=== PATIENT | female | born 1945 | race Caucasian/White ===

== ENCOUNTER 2016-06-22 09:26 | Emergency (ER) | payer MEDICARE, BC ==
[2016-06-22 09:41] VITALS: BP 148/76
[2016-06-22] MEDS ORDERED: Naproxen TAB* 375 MG PO ONE (10:34)
[2016-06-22] MEDS ORDERED: Naproxen TAB* 250 MG PO ONE (10:37)
--- NOTE | 2016-06-22 10:41 | UC ---
Back Pain HPI - HPI Summary HPI Summary: Nurse's note: USING A CANE ONLY BECAUSE OF INJURY; NOT ROUTINELY. DISWASHER DOOR WAS OPENA AND SHE WALKED INTO IT AND TRIPPED AND FELL. HIT THE RIGHT HAND SIDE OF HER RIBS/SHOULDER BLADE. FELT LIKE A KNIFE GOING INTO HER. PAINF ROM LOWER PART OF SHOULDER BLADE TO HER WAIST ON THE RIGHT SIDE. HURTS TO GET UP AND DOWN FROM A CHAIR AND TO BEND SIDEWAYS. FELT LIKE SHE "LOST HER AIR" WHEN IT HAPPENED. NO SOB NOW. HPI: A 70 y/o female came in to [facility] presenting w/ a sudden onset of constant pain due to injury acquired yesterday 06/21/16 around 6:00pm. Patient states she was clearing the table carrying dishes when she tripped over the open cyanide case hardener door landing on her right side. She states she felt sudden pain when incident happened and described it to be "sharp stabbing pain like a knife" went into her back. Pt reports it took the wind out of her. Since the incident she has been experiencing a constant dull pain with sharp pain just under her right shoulder blade and radiating down her right flank upon certain movements. She states the pain is worse when changing positions, twisting and taking deep breaths. Denies any bruising or swelling. She states she also hit her right elbow however it is only sore. She is able to move it and has not noticed any bruising or deformity. Denies hitting her head, LOC, neck pain, loss of bladder/ bowel control, saddle anesthesia, muscle spasms and numbness/tingling. She is able to bear weight and walk however certain movements due cause her sharp shooting pain. She has not taken anything for the pain. Holding her hand behind her back and applying pressure gives her some relief. No pertinent PMHx. Patient does pilates and states she is very strong and knows how to breathe through pain. Denies difficulty breathing, SOB, chest pain and abdominal pain. - History of Current Complaint Chief Complaint: UC Stated Complaint: BACK INJURY Time Seen by Provider: 06/22/16 10:20 Hx Obtained From: Patient ?: No Onset/Duration: Sudden Onset Timing: Constant Severity Initially: Moderate Severity Currently: Moderate Pain Intensity: 5 Pain Scale Used: 0-10 Numeric Back Pain: Is Discrete @ - right side of ribs under shoulder blade, Radiates To - some radiation down right flank with movement Character: Sharp, Dull, Aching Aggravating: Movement, Lifting, Bending, Walking Alleviating: Rest, Position Associated Signs And Symptoms: Negative: Swelling, Redness, Bruising, Weakness, Numbness, Tingling, Abdominal Pain, Bladder Incontinence, Bowel Incontinence, Pain with Weight Bearing - Allergies/Home Medications Allergies/Adverse Reactions: Allergies Allergy/AdvReac Type Severity Reaction Status Date / Time Doxycycline Allergy Severe Anaphylatic Verified 02/07/16 15:44 Shock Iodine Allergy Severe Rash Verified 02/07/16 15:46 Monosodium Glutamate Allergy Severe Anaphylatic Verified 02/07/16 15:46 Shock FAMCYCLOVIR Allergy Severe Anaphylatic Uncoded 02/07/16 15:46 Shock PMH/Surg Hx/FS Hx/Imm Hx Previously Healthy: Yes Endocrine History Of: Reports: Thyroid Disease - HANSA Denies: Diabetes Cardiovascular History Of: Denies: Cardiac Disorders, Hypertension Respiratory History Of: Denies: COPD, Asthma GI/ History Of: Denies: Ulcer - Surgical History Surgical History: Yes Surgery Procedure, Year, and Place: APPENDECTOMY, TONSILLECTOMY - Family History Known Family History: Positive: Other - thyroid problems - Social History Alcohol Use: Occasionally Substance Use Type: None Smoking Status (MU): Never Smoked Tobacco Review of Systems Constitutional: Negative Skin: Negative Eyes: Negative ENT: Negative Respiratory: Negative Cardiovascular: Negative Gastrointestinal: Negative Genitourinary: Negative Motor: Decreased ROM - back twisting, bending Neurovascular: Negative Musculoskeletal: Arthralgia - right side ribs/flank, Decreased ROM, Myalgia Neurological: Negative Psychological: Negative All Other Systems Reviewed And Are Negative: Yes Physical Exam Triage Information Reviewed: Yes Appearance: Well-Appearing, No Pain Distress, Well-Nourished Vital Signs: Initial Vital Signs Temp 98.8 F 06/22/16 09:35 Pulse 82 06/22/16 09:35 Resp 16 06/22/16 09:35 BP 148/76 06/22/16 09:35 Pulse Ox 100 06/22/16 09:35 slightly elevated BP, patient is in pain Vital Signs Reviewed: Yes Eyes: Positive: Conjunctiva Clear ENT Exam: Normal Neck: Positive: Supple, Nontender, No Lymphadenopathy Respiratory: Positive: Lungs clear, Normal breath sounds, No respiratory distress, No accessory muscle use, Other: - mild tenderness on palpation of right lower rib cage under shoulder blade around T4-T8. patient points to the area of around T6 of the most pain. painful to take deep breaths on exam. Cardiovascular: Positive: RRR, No Murmur, Pulses Normal - 2+ bilateral radial and pedal, Brisk Capillary Refill - < 2 seconds Abdomen Description: Positive: Nontender, Soft Musculoskeletal: Positive: Strength Intact - b/l lower extremity, including toes strength 5/5. upper extremity right: 3/5 due to pain in back and left 5/5, No Edema - No deformitiy, crepitus or step-off noted. skin intact. sensation intact. patellar reflexes 2+ and normal bilateral, ROM Limited @ - flexion, extension and twisting of back. Neurological Exam: Normal Psychological Exam: Normal Skin Exam: Normal Diagnostics - Radiology chest x-ray Xray Interpretation: No Acute Changes - REPORT: Negative for RIGHT rib fracture , pleural effusion, pneumothorax. The lungs are clear. The heart, pulmonary vasculature, and mediastinal contours are unremarkable. Mild thoracic degenerative spondylosis. IMPRESSION: No evidence for RIGHT rib fracture or other traumatic injury. No acute cardiopulmonary process evident. Radiology Interpretation Completed By: Radiologist right rib x-ray Xray Interpretation: No Acute Changes - No evidence for RIGHT rib fracture or other traumatic injury. No acute cardiopulmonary process evident. Radiology Interpretation Completed By: Radiologist Back Pain Course/Dx - Course Course Of Treatment: was given naproxen while in office for pain and inflammation. x-ray of right ribs and chest taken to rule out fracture. it was negative. patient will be sent home with naproxen (she preferred the lowest dose as she does not take medication often and upsets her stomach) and told to rest and ice as it is muscular. MARLENE and physical exam signs appear to be muscular strains. recommended follow up. - Differential Dx/Diagnosis Differential Diagnosis/HQI/PQRI: Strain, Sprain, Other - rib fracture Provider Diagnoses: muscular strain of right ribs, flank Discharge - Discharge Plan Condition: Stable Disposition: HOME Prescriptions: Naproxen TAB* [Naprosyn TAB*] 250 mg PO Q8H PRN #14 tab PRN Reason: Pain Patient Education Materials: Thoracic Back Strain (ED) Referrals: Zina Ruiz MD [Primary Care Provider] - Additional Instructions: Take Naproxen (Aleve) as prescribed for the next 3 days and then as needed for pain and inflammation. Take medication with food. You may take 2 in one day. Rest you back and use pain as your guide, this may take up to 2 weeks to heal. You should have some improvement in the next 5-7days. Ice/heat the area a few times daily. Once pain subsides you may resume doing back exercise and pilates. Refrain from physical activity/exercise for atleast 5-7 days to allow for proper healing. Follow-up with primary care doctor is recommended. If symptoms worsen or do not get better please return to UC promptly.
--- NOTE | 2016-06-22 11:23 | RAD ---
INDICATION: Posterior RIGHT side back pain. Hurts when breathing. Assess for rib fracture. COMPARISON: None. TECHNIQUE: Dual energy PA and routine lateral views of the chest were obtained. 4 view RIGHT rib series. REPORT: Negative for RIGHT rib fracture, pleural effusion, pneumothorax. The lungs are clear. The heart, pulmonary vasculature, and mediastinal contours are unremarkable. Mild thoracic degenerative spondylosis. IMPRESSION: No evidence for RIGHT rib fracture or other traumatic injury. No acute cardiopulmonary process evident.
== END 2016-06-22 11:43 | disposition home or self-care (01) ==
LOC: UCEAST 09:26
DX: S29.011A Strain of muscle and tendon of front wall of thorax, initial encounter (principal); S39.012A Strain of muscle, fascia and tendon of lower back, initial encounter; W01.198A Fall on same level from slipping, tripping and stumbling with subsequent striking against other object, initial encounter; Y93.89 Activity, other specified; Y92.000 Kitchen of unspecified non-institutional (private) residence as the place of occurrence of the external cause; Z88.1 Allergy status to other antibiotic agents
CPT/HCPCS: 71020; 99212; A9270-GY; G0463

== ENCOUNTER 2022-10-15 09:25 | Observation (INO) ==
[2022-10-15] MEDS ORDERED: Ondansetron 4 mg VIAL 2 MG/ML 2 ml VIAL IV ONE (10:17)
[2022-10-15 10:46] LABS: INR 0.98 (0.88-1.18)
[2022-10-15 10:46] LABS: ABS Lymphocytes 0.7 10^3/uL (1.0-4.8); ABS Monocytes 0.2 10^3/uL (0.0-0.9); ABS Neutrophils 8.9 10^3/uL (1.5-7.6); ABS Nucleated RBC 0.01 10^3/ul; Eosinophil % 0.2 %; Hemoglobin 12.9 g/dL (11.5-14.3); Mean Corpuscular Hemoglobin 30.7 pg (27-33); Mean Corpuscular Hgb Conc 33.9 g/dL (31-36); Mean Corpuscular Volume 90.5 fL (80-97); Nucleated Red Blood Cells % 0.1 /100 WBC (0.0-0.4); Platelet Count 316 10^3/uL (150-450); Red Blood Count 4.19 10^6/uL (3.63-4.92); Red Cell Distribution Width 13.1 % (12-17); White Blood Count 9.9 10^3/uL (3.8-11.8)
[2022-10-15] MEDS ORDERED: NS 0.9% 500 ml BAG 500 ML IV SCH ×2 (11:00→14:22)
[2022-10-15 11:08] LABS: Albumin 4.1 g/dL (3.2-5.2); Albumin/Globulin Ratio 1.7 (1-3); Calcium 9.1 mg/dL (8.6-10.3); Creatinine, Serum 0.85 mg/dL (0.51-0.95); Globulin 2.4 g/dL (2-4); HDL Cholesterol 102.9 mg/dL; Total Bilirubin 0.4 mg/dL (0.2-1.0); Total Protein 6.5 g/dL (6.4-8.9)
[2022-10-15] MEDS ORDERED: hydrALAZINE 20 mg/ml 1 ML Vial IV IV SLOW PU ONE (12:50)
[2022-10-15 13:50] LABS: TSH Ultra Thyroid Stim Horm 0.14 mcIU/mL (0.34-5.60)
[2022-10-15 13:52] LABS: Free T4 1.48 ng/dL (0.61-1.12)
[2022-10-15] MEDS ORDERED: Ondansetron 4 mg VIAL 2 MG/ML 2 ml VIAL IV PRN (13:57)
[2022-10-15] MEDS ORDERED: Labetalol IV 5 MG/ML 20 ml VIAL IV PUSH PRN (14:00)
[2022-10-15] MEDS ORDERED: NS 0.9% 1000 ml BAG 500 ML IV SCH (18:30)
[2022-10-15] MEDS ORDERED: Enoxaparin 40 MG/0.4 ML SYR SUBCUT SCH (21:00)
[2022-10-16 05:56] LABS: Hematocrit 30.9 % (35-45); Hemoglobin 10.7 g/dL (11.5-14.3); Mean Corpuscular Hemoglobin 31.3 pg (27-33); Mean Corpuscular Hgb Conc 34.7 g/dL (31-36); Mean Corpuscular Volume 90.3 fL (80-97); Mean Platelet Volume 7.4 fL (7.5-11.2); Platelet Count 257 10^3/uL (150-450); Red Blood Count 3.42 10^6/uL (3.63-4.92); Red Cell Distribution Width 13.2 % (12-17); White Blood Count 5.1 10^3/uL (3.8-11.8)
[2022-10-16 06:25] LABS: Calcium 8.5 mg/dL (8.6-10.3); Creatinine, Serum 0.86 mg/dL (0.51-0.95); Magnesium 1.9 mg/dL (1.9-2.7); Phosphorus 3.5 mg/dL (2.5-5.0); Potassium 4.1 mmol/L (3.5-5.0)
[2022-10-16 14:45] VITALS: BP 137/59
== END 2022-10-16 15:40 | disposition home or self-care (01) ==
LOC: EDHOLD 09:25 → ED 09:25 → SUATTDRO 11:36 → EDHOLD 13:55 → MEDTELE 14:11
PROVIDERS: ADMIT Internal Medicine; ATTEND Internal Medicine